=== PATIENT | male | born 1975 | race Caucasian/White ===

== ENCOUNTER 2022-10-20 08:52 | Outpatient (CLI) | payer OTHER | END 2022-10-20 08:56 | disposition home or self-care (01) | LOC: SONOGRAMA 08:52 | PROVIDERS: ATTEND Pathology Anatomic Pathology & Clinical Pathology | DX: D36.0 Benign neoplasm of lymph nodes (principal); E89.0 Postprocedural hypothyroidism; C73 Malignant neoplasm of thyroid gland ==

== ENCOUNTER 2022-11-21 10:03 | Outpatient (CLI) | payer OTHER | END 2022-11-21 10:04 | disposition home or self-care (01) | LOC: NUCLEAR 10:03 | PROVIDERS: ATTEND Internal Medicine Sports Medicine | DX: C73 Malignant neoplasm of thyroid gland (principal); E89.0 Postprocedural hypothyroidism ==